=== PATIENT | female | born 1935 | race Caucasian/White ===

== ENCOUNTER → 2016-06-17 | Outpatient (CLI) | payer MEDICARE, BC | LOC: WI 14:35 | PROVIDERS: ATTEND Internal Medicine | DX: Z12.31 Encounter for screening mammogram for malignant neoplasm of breast (principal) | CPT/HCPCS: 77063; G0202; 77067 ==

== ENCOUNTER → 2017-06-20 | Outpatient (CLI) | payer MEDICARE, BC ==
--- NOTE | 2017-06-20 16:17 | WOMENS IMAGING REPORT ---
EXAM DESCRIPTION: 3D SCREENING MAMMO BILAT COMPLETED DATE/TIME: 06/20/2017 10:03 am REASON FOR STUDY: ROUTINE SCREENING;Z12.31 Z12.31 ENCNTR SCREEN MAMMOGRAM FOR MALIGNANT NEOPLASM OF VERO COMPARISON: 2015, 2016 TECHNIQUE: Standard craniocaudal and mediolateral oblique views of each breast recorded using digita l acquisition and breast tomosynthesis. LIMITATIONS: None. FINDINGS: No masses, calcifications or architectural distortion. No areas of suspicion. Read with the assistance of CAD. .[facility] - R2 Cenova Version 1.3 .[facility] Imaging - R2 Cenova Version 1.3 .[facility] Imaging - R2 Cenova Version 2.4 .[facility] [place] - R2 Cenova Version 2.4 .[facility] - R2 State Wildlife Officer Version 9.2 IMPRESSION: NORMAL MAMMOGRAM. BIRADS 1. BREAST DENSITY: b. There are scattered areas of fibroglandular density. BIRAD: 1 NEGATIVE RECOMMENDATION: ROUTINE SCREENING COMMENT: The patient has been notified of the results by letter per SA requirements. Additional no tification policies are in place for contacting patient with suspicious or incomplete findings. Quality ID #[id number]: The [employer] recommends an annual screening mammogram for women aged 40 years or over. This facility utilizes a reminder system to ensure that all patients receive reminder letters, and/or direct phone calls for appointments. This includes reminders for routine scr eening mammograms, diagnostic mammograms, or other Breast Imaging Interventions when appropriate. Th is patient will be placed in the appropriate reminder system. The [employer] (ACR) has developed recommendations for screening MRI of the breast s in certain patient populations, to be used in conjunction with mammography. Breast MRI surveillanc e may be appropriate for women with more than 20% lifetime risk of developing breast cancer as deter mined by genetic testing, significant family history of the disease, or history of mantle radiation f or Hodgkins Disease. ACR Practice Guidelines 2008. DBT Technology DBT is a type of tomographic mammography. With conventional mammography, overlapping breast tissue ma y make lesions difficult to detect, even with good compression. DBT uses an x-ray tube that rotates a round the breast, taking images at different angles. These images are then combined to create thin sl ices of the breast that the radiologist can view as a 3D reconstruction. The [place] unit can perform full-field digital mammograms (2D imaging); or DBT (3D imaging); or both, in a combination mode that quickly performs both the mammogram and the tomosynthesis scan while the breast is still compressed. PQRS 6045F: Fluoroscopic imaging is not utilized for breast tomosynthesis. TECHNICAL DOCUMENTATION: FINDING NUMBER: (1) ASSESSMENT: (1) JOB ID: [id number] [employer]- All Rights Reserved Reading location - IP/workstation name: [email or web address] [id number]
== END ==
LOC: WI 09:41
PROVIDERS: ATTEND Internal Medicine
DX: Z12.31 Encounter for screening mammogram for malignant neoplasm of breast (principal)
CPT/HCPCS: 77063; 77067

== ENCOUNTER → 2018-07-05 | Outpatient (CLI) | payer MEDICARE, BC ==
--- NOTE | 2018-07-05 14:46 | WOMENS IMAGING REPORT ---
EXAM DESCRIPTION: BILAT SCREENING MAMMO W/CAD COMPLETED DATE/TIME: 07/05/2018 12:08 pm REASON FOR STUDY: Z12.31 ROUTINE BILATERAL SCREENING Z12.31 ENCNTR SCREEN MAMMOGRAM FOR MALIGNANT N EOPLASM OF VERO COMPARISON: Multiple since 2016 TECHNIQUE: Standard craniocaudal and mediolateral oblique views of each breast recorded using Valeritasa l acquisition. LIMITATIONS: None. FINDINGS: No masses, calcifications or architectural distortion. No areas of suspicion. Read with the assistance of CAD. .[facility] - R2 Instructor Extension Work Version 9.2 IMPRESSION: NORMAL MAMMOGRAM. BIRADS 1. BREAST DENSITY: b. There are scattered areas of fibroglandular density. BIRAD: 1 NEGATIVE RECOMMENDATION: ROUTINE SCREENING COMMENT: The patient has been notified of the results by letter per MQSA requirements. Additional no tification policies are in place for contacting patient with suspicious or incomplete findings. Quality ID #[id number]: The [employer] recommends an annual screening mammogram for women aged 40 years or over. This facility utilizes a reminder system to ensure that all patients receive reminder letters, and/or direct phone calls for appointments. This includes reminders for routine scr eening mammograms, diagnostic mammograms, or other Breast Imaging Interventions when appropriate. Th is patient will be placed in the appropriate reminder system. TECHNICAL DOCUMENTATION: FINDING NUMBER: (1) ASSESSMENT: (1) JOB ID: [id number] NC-62 2010 [employer]- All Rights Reserved Reading location - IP/workstation name: [email or web address]
== END ==
LOC: WI 11:50
PROVIDERS: ATTEND Internal Medicine
DX: Z12.31 Encounter for screening mammogram for malignant neoplasm of breast (principal)
CPT/HCPCS: 77067

== ENCOUNTER 2019-03-13 07:11 | Emergency (ER) | payer MEDICARE, BC ==
[2019-03-13] MEDS ORDERED: ONDANSETRON 4 MG TAB.RAPDIS PO ONE (07:51)
[2019-03-13] MEDS ORDERED: NORMAL SALINE 1000 ML 1,000 ML IV ONE (08:16)
[2019-03-13] MEDS ORDERED: KETOROLAC TROMETHAMINE INJ/PF 30 MG/1 ML SDV IV ONE (08:17)
[2019-03-13 08:23] LABS: APPEARANCE,URINE CLEAR; BILIRUBIN,URINE NEGATIVE (NEGATIVE); COLOR,URINE YELLOW; GLUCOSE, URINE NEGATIVE (NEGATIVE); KETONES,URINE NEGATIVE (NEGATIVE); LEUKOCYTE ESTERASE,URINE NEGATIVE (NEGATIVE); NITRITE,URINE NEGATIVE (NEGATIVE); PROTEIN,URINE NEGATIVE (NEGATIVE); URINE SPECIFIC GRAVITY 1.016; UROBILINOGEN,URINE NEGATIVE mg/dL (<2.0)
[2019-03-13 08:26] LABS: ABSOLUTE BASOPHILS # (AUTO) 0.1 10^3/uL (0.0-0.2); ABSOLUTE LYMPHOCYTES (AUTO) 1.2 10^3/uL (0.5-4.7); ABSOLUTE MONOCYTES (AUTO) 0.7 10^3/uL (0.1-1.4); ABSOLUTE NEUT (AUTO) 12.3 10^3/uL (1.7-8.2); EOSINOPHILS % (AUTO) 0.1 % (0-6); HEMATOCRIT 37.6 % (36.0-47.0); HEMOGLOBIN 12.5 g/dL (12.0-15.5); LYMPHOCYTES % (AUTO) 8.4 % (13-45); MEAN CORPUSCULAR HEMOGLOBIN 33.3 pg (27.0-33.4); MEAN CORPUSCULAR HGB CONC 33.2 g/dL (32.0-36.0); MEAN CORPUSCULAR VOLUME 100 fl (80-97); PLATELET COUNT 260 10^3/uL (150-450); RED BLOOD COUNT 3.75 10^6/uL (3.72-5.28); RED CELL DISTRIBUTION WIDTH 14.7 % (11.5-14.0); SEGMENTED NEUTROPHILS % (AUTO) 85.5 % (42-78); TOTAL CELLS COUNTED % (AUTO) 100 %; WHITE BLOOD COUNT 14.4 10^3/uL (4.0-10.5)
[2019-03-13 08:51] LABS: ALBUMIN 4.3 g/dL (3.5-5.0); ALKALINE PHOSPHATASE 42 U/L (38-126); ANION GAP 9 (5-19); ASPARTATE AMINO TRANSFERASE 31 U/L (14-36); BILIRUBIN,DIRECT 0.1 mg/dL (0.0-0.4); BILIRUBIN,TOTAL 0.9 mg/dL (0.2-1.3); BLOOD UREA NITROGEN 29 mg/dL (7-20); CALCIUM 9.3 mg/dL (8.4-10.2); CARBON DIOXIDE 28 mmol/L (22-30); CHLORIDE 99 mmol/L (98-107); GLUCOSE 114 mg/dL (75-110); POTASSIUM 4.6 mmol/L (3.6-5.0); TOTAL PROTEIN 7.5 g/dL (6.3-8.2)
--- NOTE | 2019-03-13 09:05 | RADIOLOGY REPORT (SQ) ---
EXAM DESCRIPTION: CT ABD/PELVIS NO ORAL OR IV COMPLETED DATE/TIME: 03/13/2019 8:40 am REASON FOR STUDY: right flank pain COMPARISON: None. TECHNIQUE: CT scan of the abdomen and pelvis performed without intravenous or oral contrast. Images reviewed with lung, soft tissue, and bone windows. Reconstructed coronal and sagittal MPR images revi ewed. All images stored on PACS. All CT scanners at this facility use dose modulation, iterative reconstruction, and/or weight based d osing when appropriate to reduce radiation dose to as low as reasonably achievable (ALARA). [facility]: Dose Right [facility]: CareDose [facility]: Dose Right [facility]: Teradose 4D [facility]: Smart eRelyx RADIATION DOSE: CT Rad equipment meets quality standard of care and radiation dose reduction techniq ues were employed. CTDIvol: 5.6 mGy. DLP: 303 mGy-cm.mGy. LIMITATIONS: None. FINDINGS: LOWER CHEST: Coronary artery calcifications. No nodules or infiltrates. NON-CONTRASTED LIVER, SPLEEN, ADRENALS: Evaluation limited by lack of IV contrast. No identified sign ificant masses. PANCREAS: No masses. No peripancreatic inflammatory changes. GALLBLADDER: No identified stones by CT criteria. No inflammatory changes to suggest cholecystitis. RIGHT KIDNEY AND URETER: No solid masses. There is a 3 mm obstructive calculus of the right ureterop elvic junction with moderate hydronephrosis and perinephric fat stranding. There is an additional no nobstructive calculus of the superior pole. Multiple parapelvic cysts. LEFT KIDNEY AND URETER: No solid masses. Multiple parapelvic cysts. No significant calcification. N o hydronephrosis or hydroureter. AORTA AND RETROPERITONEUM: No aneurysm. No retroperitoneal masses or adenopathy. Calcific atheroscle rosis. BOWEL AND PERITONEAL CAVITY: No obvious masses or inflammatory changes. No free fluid. APPENDIX: Normal. PELVIS, BLADDER, AND ABDOMINAL WALL:No abnormal masses. Status post hysterectomy. No free fluid. Bl adder normal. BONES: No significant findings. OTHER: No other significant finding. IMPRESSION: There is a 3 mm obstructive calculus of the right ureteropelvic junction with moderate h ydronephrosis and perinephric fat stranding. TECHNICAL DOCUMENTATION: JOB ID: [id number] Quality ID # [id number]: Final reports with documentation of one or more dose reduction techniques (e.g., Au tomated exposure control, adjustment of the mA and/or kV according to patient size, use of iterative reconstruction technique) 2010 [employer]- All Rights Reserved Reading location - IP/workstation name: [email or web address]
--- NOTE | 2019-03-13 10:11 | ER Document Report ---
ED General - General Chief Complaint: Flank Pain Stated Complaint: NAUSEA,RIGHT FLANK PAIN Time Seen by Provider: 03/13/19 08:01 Primary Care Provider: CHANDRA SANTOS MD [Primary Care Provider] - Follow up as needed Mode of Arrival: Ambulatory Information source: Patient TRAVEL OUTSIDE OF THE [place] IN LAST 30 DAYS: No - HPI Notes: Patient presents with right flank pain. This started last night. He has been constant. Is been severe. Nothing makes it better or worse. It radiates from the right flank into the right lower part of the abdomen. It has been sharp. She states she has no previous history of kidney stones. She has not had any problems with urination or bowel movements. She has had some nausea but no vomiting. No fevers. - Related Data Allergies/Adverse Reactions: codeine [Codeine] Allergy (Verified 03/13/19 07:40) Nausea latex [Latex] Allergy (Verified 03/13/19 07:40) ITCHING, REDNESS ibuprofen Adverse Reaction (Unknown, Verified 03/13/19 07:40) GI upset TROPICAL FRUIT(KIWI,PINEAPPLE,EDY Allergy (Severe, Uncoded 03/13/19 07:40) BREATHING DIFFICULTIES Home Medications: attached medication sheet Past Medical History - General Information source: Patient - Social History Smoking Status: Never Smoker Chew tobacco use (# tins/day): No Frequency of alcohol use: None Drug Abuse: None Family History: None Patient has suicidal ideation: No Patient has homicidal ideation: No - Past Medical History Cardiac Medical History: Reports: Hx Hypertension - MEDICATED Denies: Hx Heart Attack Pulmonary Medical History: Denies: Hx Asthma Neurological Medical History: Denies: Hx Cerebrovascular Accident, Hx Seizures GI Medical History: Denies: Hx Hepatitis, Hx Hiatal Hernia, Hx Ulcer Musculoskeletal Medical History: Reports Hx Arthritis - RA Infectious Medical History: Denies: Hx Hepatitis Past Surgical History: Reports: Hx Hysterectomy. Denies: Hx Mastectomy, Hx Open Heart Surgery, Hx Pacemaker - Immunizations Hx Diphtheria, Pertussis, Tetanus Vaccination: Yes Review of Systems - Review of Systems Constitutional: denies: Chills, Fever Cardiovascular: denies: Chest pain, Palpitations Respiratory: denies: Cough, Short of breath -: Yes All other systems reviewed and negative Physical Exam - Vital signs Vitals: Temp Pulse Resp BP Pulse Ox 97.9 F 66 16 162/44 H 97 03/13/19 07:16 03/13/19 07:16 03/13/19 07:16 03/13/19 07:16 03/13/19 07:16 Interpretation: Normal - General General appearance: Appears well, Alert - HEENT Head: Normocephalic, Atraumatic Eyes: Normal Pupils: PERRL - Respiratory Respiratory status: No respiratory distress Chest status: Nontender Breath sounds: Normal Chest palpation: Normal - Cardiovascular Rhythm: Regular Heart sounds: Normal auscultation Murmur: No - Abdominal Inspection: Normal Distension: No distension Bowel sounds: Normal Tenderness: Nontender Organomegaly: No organomegaly - Back Back: Normal, Nontender - Extremities General upper extremity: Normal inspection, Nontender, Normal color, Normal ROM, Normal temperature General lower extremity: Normal inspection, Nontender, Normal color, Normal ROM, Normal temperature, Normal weight bearing. No: Braydon's sign - Neurological Neuro grossly intact: Yes Cognition: Normal Orientation: AAOx4 [place] Coma Scale Eye Opening: Spontaneous [place] Coma Scale Verbal: Oriented [place] Coma Scale Motor: Obeys Commands Lalit Coma Scale Total: 15 Speech: Normal Motor strength normal: LUE, RUE, LLE, RLE Sensory: Normal - Psychological Associated symptoms: Normal affect, Normal mood - Skin Skin Temperature: Warm Skin Moisture: Dry Skin Color: Normal Course - Re-evaluation Re-evalutation: 03/13/19 10:08 Patient presents with right flank pain. CT shows a ureteral stone. She has a mildly elevated white blood cell count but no fever. She states she feels better now. She is not toxic appearing. There is no evidence of infection on the urinalysis. Her vital signs are stable. There is no fever. - Vital Signs Vital signs: Temp Pulse Resp BP Pulse Ox 97.9 F 66 16 162/44 H 97 03/13/19 07:16 03/13/19 07:16 03/13/19 07:16 03/13/19 07:16 03/13/19 07:16 - Laboratory Result Diagrams: 03/13/19 08:16 03/13/19 08:16 Laboratory results interpreted by me: 03/13/19 03/13/19 03/13/19 08:04 08:16 08:16 WBC 14.4 H MCV 100 H RDW 14.7 H Lymph % (Auto) 8.4 L Absolute Neuts (auto) 12.3 H Seg Neutrophils % 85.5 H Sodium 136.4 L BUN 29 H Creatinine 1.31 H Est GFR ( Amer) 47 L Est GFR (MDRD) Non-Af 39 L Glucose 114 H Urine Blood SMALL H - Diagnostic Test Radiology reviewed: Image reviewed, Reports reviewed Discharge - Discharge Clinical Impression: Right ureteral stone Condition: Stable Disposition: HOME, SELF-CARE Instructions: Kidney Stone ([facility]) Prescriptions: Hydrocodone/Acetaminophen [[place] 5-325 mg Tablet] 0.5 tab PO Q6 3 Days #5 tablet Referrals: CHANDRA SANTOS MD [Primary Care Provider] - Follow up as needed
[2019-03-13 11:16] VITALS: BP 151/45
== END 2019-03-13 11:28 | disposition home or self-care (01) ==
LOC: ER 07:11
DX: N13.2 Hydronephrosis with renal and ureteral calculous obstruction (principal); R10.9 Unspecified abdominal pain; R11.0 Nausea; D72.829 Elevated white blood cell count, unspecified; I10 Essential (primary) hypertension; Z88.6 Allergy status to analgesic agent; Z88.5 Allergy status to narcotic agent; Z91.041 Radiographic dye allergy status; Z91.018 Allergy to other foods
CPT/HCPCS: 99284; 96361; 96374; 36415; 85025; 80053; 81001; 74176; A9270; J1885; J7030; S0119

== ENCOUNTER 2019-03-19 19:48 | Emergency (ER) | payer MEDICARE, BC ==
[2019-03-19] MEDS ORDERED: ONDANSETRON HCL INJ/PF 4 MG/2 ML SDV IV ONE (21:27)
[2019-03-19] MEDS ORDERED: NORMAL SALINE 1000 ML 1,000 ML IV ONE (21:28)
--- NOTE | 2019-03-19 22:02 | ER Document Report ---
ED Medical Screen (RME) - General Chief Complaint: Nausea/Vomiting Stated Complaint: NAUSEA/VOMITING Time Seen by Provider: 03/19/19 21:19 Primary Care Provider: CHANDRA ASNTOS MD [Primary Care Provider] - Follow up as needed Mode of Arrival: Ambulatory Information source: Patient Notes: 84-year-old female patient presents emergency department with persistent nausea and vomiting. Patient reports she had a kidney stone approximately 1 week ago, states she was seen here, states she passed the stone a few days ago but has been unable to hold anything down since then including her medications. Patient reports she feels very weak. Patient is alert, oriented, answering all questions appropriately. I have greeted and performed a rapid initial assessment of this patient. A comprehensive ED assessment and evaluation of the patient, analysis of test results and completion of the medical decision making process will be conducted by additional ED providers. I have specifically instructed the patient or family members with the patient to immediately return to any nursing staff should anything change in the patient's condition or with their chief complaint. TRAVEL OUTSIDE OF THE [place] IN LAST 30 DAYS: No - Related Data Allergies/Adverse Reactions: codeine [Codeine] Allergy (Verified 03/19/19 21:36) Nausea latex [Latex] Allergy (Verified 03/19/19 21:36) ITCHING, REDNESS ibuprofen Adverse Reaction (Unknown, Verified 03/19/19 21:36) GI upset TROPICAL FRUIT(KIWI,PINEAPPLE,EDY Allergy (Severe, Uncoded 03/19/19 21:36) BREATHING DIFFICULTIES Past Medical History - Past Medical History Cardiac Medical History: Reports: Hx Hypertension - MEDICATED Denies: Hx Heart Attack Pulmonary Medical History: Denies: Hx Asthma Neurological Medical History: Denies: Hx Cerebrovascular Accident, Hx Seizures GI Medical History: Denies: Hx Hepatitis, Hx Hiatal Hernia, Hx Ulcer Musculoskeltal Medical History: Reports Hx Arthritis - RA Infectious Medical History: Denies: Hx Hepatitis Past Surgical History: Reports: Hx Hysterectomy. Denies: Hx Mastectomy, Hx Open Heart Surgery, Hx Pacemaker - Immunizations Hx Diphtheria, Pertussis, Tetanus Vaccination: Yes Physical Exam - Vital signs Vitals: Temp Pulse Resp BP Pulse Ox 98.6 F 62 18 152/51 H 93 03/19/19 20:11 03/19/19 20:11 03/19/19 20:11 03/19/19 20:11 03/19/19 20:11 Course - Vital Signs Vital signs: Temp Pulse Resp BP Pulse Ox 98.6 F 62 18 152/51 H 93 03/19/19 20:11 03/19/19 20:11 03/19/19 20:11 03/19/19 20:11 03/19/19 20:11 Doctor's Discharge - Discharge Referrals: CHANDRA SANTOS MD [Primary Care Provider] - Follow up as needed
[2019-03-19 22:05] LABS: ABSOLUTE LYMPHOCYTES (AUTO) 1.2 10^3/uL (0.5-4.7); ABSOLUTE MONOCYTES (AUTO) 0.3 10^3/uL (0.1-1.4); ABSOLUTE NEUT (AUTO) 11.1 10^3/uL (1.7-8.2); BASOPHILS % (AUTO) 0.4 % (0-2); EOSINOPHILS % (AUTO) 0.3 % (0-6); HEMATOCRIT 40.3 % (36.0-47.0); HEMOGLOBIN 13.4 g/dL (12.0-15.5); LYMPHOCYTES % (AUTO) 9.8 % (13-45); MEAN CORPUSCULAR HEMOGLOBIN 33.1 pg (27.0-33.4); MEAN CORPUSCULAR HGB CONC 33.3 g/dL (32.0-36.0); MEAN CORPUSCULAR VOLUME 99 fl (80-97); MONOCYTES % (AUTO) 2.1 % (3-13); PLATELET COUNT 303 10^3/uL (150-450); RED BLOOD COUNT 4.05 10^6/uL (3.72-5.28); RED CELL DISTRIBUTION WIDTH 15.9 % (11.5-14.0); SEGMENTED NEUTROPHILS % (AUTO) 87.4 % (42-78); TOTAL CELLS COUNTED % (AUTO) 100 %; WHITE BLOOD COUNT 12.6 10^3/uL (4.0-10.5)
[2019-03-19 22:15] LABS: APPEARANCE,URINE SLIGHTLY-CLOUDY; BILIRUBIN,URINE NEGATIVE (NEGATIVE); COLOR,URINE YELLOW; GLUCOSE, URINE NEGATIVE (NEGATIVE); KETONES,URINE 80 mg/dL (NEGATIVE); LEUKOCYTE ESTERASE,URINE NEGATIVE (NEGATIVE); NITRITE,URINE NEGATIVE (NEGATIVE); PROTEIN,URINE 100 mg/dL (NEGATIVE); URINE SPECIFIC GRAVITY 1.018
[2019-03-19 22:31] LABS: ALBUMIN 3.8 g/dL (3.5-5.0); ALKALINE PHOSPHATASE 44 U/L (38-126); ANION GAP 11 (5-19); ASPARTATE AMINO TRANSFERASE 36 U/L (14-36); BILIRUBIN,DIRECT 0.5 mg/dL (0.0-0.4); BILIRUBIN,TOTAL 1.1 mg/dL (0.2-1.3); BLOOD UREA NITROGEN 26 mg/dL (7-20); CALCIUM 8.2 mg/dL (8.4-10.2); CARBON DIOXIDE 22 mmol/L (22-30); CHLORIDE 101 mmol/L (98-107); POTASSIUM 4.8 mmol/L (3.6-5.0); TOTAL PROTEIN 7.2 g/dL (6.3-8.2)
[2019-03-19 22:34] LABS: GLUCOSE 64 mg/dL (75-110)
--- NOTE | 2019-03-20 00:10 | ER Document Report ---
ED General - General Chief Complaint: Nausea/Vomiting Stated Complaint: NAUSEA/VOMITING Time Seen by Provider: 03/19/19 21:19 Primary Care Provider: CHANDRA SANTOS MD [Primary Care Provider] - Follow up as needed Mode of Arrival: Ambulatory Information source: Patient TRAVEL OUTSIDE OF THE [place] IN LAST 30 DAYS: No - HPI Onset: Other - over the last several days Onset/Duration: Gradual Quality of pain: Achy, Cramping Severity: Mild Associated symptoms: Nausea Exacerbated by: Denies Relieved by: Denies Similar symptoms previously: No Recently seen / treated by doctor: No Notes: 84 year old female with a history of HTN and Kidney Stones (she just passed a 3.5mm stone which had been seen on a CT here in this ER on 03/13/19 here for continued nausea. The patient says she had become constipated due to the pain medications she was provided and she says the pain has nearly completely subsided since passing the stone (she still has very mild RLQ and suprapubic abdominal pain) but she has been nauseated persistently despite passing the kidney stone. - Related Data Allergies/Adverse Reactions: codeine [Codeine] Allergy (Verified 03/19/19 21:36) Nausea latex [Latex] Allergy (Verified 03/19/19 21:36) ITCHING, REDNESS ibuprofen Adverse Reaction (Unknown, Verified 03/19/19 21:36) GI upset TROPICAL FRUIT(KIWI,PINEAPPLE,EDY Allergy (Severe, Uncoded 03/19/19 21:36) BREATHING DIFFICULTIES Past Medical History - General Information source: Patient - Social History Smoking Status: Never Smoker Frequency of alcohol use: None Drug Abuse: None Family History: None Patient has suicidal ideation: No Patient has homicidal ideation: No - Past Medical History Cardiac Medical History: Reports: Hx Hypertension - MEDICATED Denies: Hx Heart Attack Pulmonary Medical History: Denies: Hx Asthma Neurological Medical History: Denies: Hx Cerebrovascular Accident, Hx Seizures GI Medical History: Denies: Hx Hepatitis, Hx Hiatal Hernia, Hx Ulcer Musculoskeletal Medical History: Reports Hx Arthritis - RA Infectious Medical History: Denies: Hx Hepatitis Past Surgical History: Reports: Hx Hysterectomy. Denies: Hx Mastectomy, Hx Open Heart Surgery, Hx Pacemaker - Immunizations Hx Diphtheria, Pertussis, Tetanus Vaccination: Yes Review of Systems - Review of Systems Constitutional: Weight loss EENT: No symptoms reported Cardiovascular: No symptoms reported Respiratory: No symptoms reported Gastrointestinal: Abdominal pain, Nausea Genitourinary: No symptoms reported Female Genitourinary: No symptoms reported Musculoskeletal: No symptoms reported Skin: No symptoms reported Hematologic/Lymphatic: No symptoms reported Neurological/Psychological: No symptoms reported Physical Exam - Vital signs Vitals: Temp Pulse Resp BP Pulse Ox 98.6 F 62 18 152/51 H 93 03/19/19 20:11 03/19/19 20:11 03/19/19 20:11 03/19/19 20:11 03/19/19 20:11 - Notes Notes: GENERAL: Well-appearing, well-nourished and in no acute distress. HEAD: Atraumatic, normocephalic. EYES: Pupils equal round and reactive to light, extraocular movements intact, sclera anicteric, conjunctiva are normal. ENT: TMs normal, nares patent, oropharynx clear without exudates. Moist mucous membranes. NECK: Normal range of motion, supple without lymphadenopathy or JVD. LUNGS: Breath sounds clear to auscultation bilaterally and equal. No wheezes rales or rhonchi. HEART: Regular rate and rhythm without murmurs, rubs or gallops. ABDOMEN: Soft, mild RLQ and suprapubic tenderness, normoactive bowel sounds. No guarding, no rebound. No masses appreciated. EXTREMITIES: Normal range of motion, no pitting or edema. No clubbing or cyanosis. NEUROLOGICAL: Cranial nerves II through XII grossly intact. Normal speech, normal gait. PSYCH: Normal mood, normal affect. SKIN: Warm, Dry, normal turgor, no rashes or lesions noted. Course - Re-evaluation Re-evalutation: 03/20/19 00:20 The patient just passed a kidney stone that was seen on CT on 03/13/19. She had another smaller kidney stone in her kidney seen on the same CT which she theoretically could be passing now. Patient could also just be nauseated from the stone she just passed, from a viral illness, or from the pain medications she had been prescribed. The patient felt much better after fluids and zofran. Labs show the patient is somewhat dehydrated but there is nothing otherwise to explain her nausea and mild abdominal pain. No need to re-CT patient as she just had one. Appendicitis seems very unlikely given her recent CT and known right sided kidney stones. - Vital Signs Vital signs: Temp Pulse Resp BP Pulse Ox 98.6 F 62 17 154/56 H 97 03/19/19 20:11 03/19/19 20:11 03/19/19 23:02 03/19/19 23:02 03/19/19 21:49 - Laboratory Result Diagrams: 03/19/19 21:55 03/19/19 21:55 Laboratory results interpreted by me: 03/19/19 03/19/19 03/19/19 21:55 21:55 21:55 WBC 12.6 H MCV 99 H RDW 15.9 H Lymph % (Auto) 9.8 L [place] % (Auto) 2.1 L Absolute Neuts (auto) 11.1 H Seg Neutrophils % 87.4 H Sodium 134.4 L BUN 26 H Glucose 64 L Calcium 8.2 L Direct Bilirubin 0.5 H Urine Protein 100 H Urine Ketones 80 H Urine Blood SMALL H Urine Urobilinogen 2.0 H Discharge - Discharge Clinical Impression: Kidney calculus Nausea & vomiting Qualifiers: Vomiting type: unspecified Vomiting Intractability: unspecified Qualified Code(s): R11.2 - Nausea with vomiting, unspecified Condition: Stable Disposition: HOME, SELF-CARE Instructions: Kidney Stone ([facility]), Nausea or Vomiting, Nonspecific ([facility]) Additional Instructions: Use Zofran as needed for nausea. Drink plenty of fluids in the days to come. Follow up with your primary care doctor and consider follow up with a Urologist. Return to an ER if worse. Prescriptions: Ondansetron [Zofran Odt 4 mg Tablet] 1 tab PO Q8HP PRN #10 tab.rapdis PRN Reason: For Nausea/Vomiting Referrals: CHANDRA SANTOS MD [Primary Care Provider] - Follow up as needed
[2019-03-20] MEDS ORDERED: ONDANSETRON ODT 4 MG TAB (6 TAB/ER DISP) PO PRN (00:19)
[2019-03-20 00:35] VITALS: BP 160/55
== END 2019-03-20 01:14 | disposition home or self-care (01) ==
LOC: ER 19:48
DX: N20.0 Calculus of kidney (principal); R11.2 Nausea with vomiting, unspecified; R10.31 Right lower quadrant pain; R10.30 Lower abdominal pain, unspecified; Z79.899 Other long term (current) drug therapy
CPT/HCPCS: 99283; 96361; 96374; 36415; 83690; 85025; 80053; 81001; J2405; J7030; A9270